=== PATIENT | male | born 1965 | race African-American/Black ===

== ENCOUNTER 2022-04-22 15:43 | Emergency (ER) | payer MEDICAID, OTHER ==
[~2022-04-22] VITALS: Ht 170.2 cm; Wt 60.0 kg
[2022-04-22 16:02] VITALS: BP 176/131
[2022-04-22] MEDS ORDERED: MIRT-89 PO (16:04)
[2022-04-22] MEDS ORDERED: LOSA100T32 PO (16:04)
[2022-04-22] MEDS ORDERED: ATEN50TA PO (16:04)
[2022-04-22] MEDS ORDERED: OLAN20TA34 PO (16:04)
[2022-04-22] MEDS ORDERED: MED4 MT (19:18)
[2022-04-22] MEDS ORDERED: B25 MT (19:18)
[2022-04-22] MEDS ORDERED: DIPHENHYDRAMINE 50MG CAPSULE PO ONE (19:30)
== END 2022-04-22 20:05 | disposition home or self-care (01) ==
LOC: ER 15:43
DX: L50.9 Urticaria, unspecified (principal); F22 Delusional disorders; I10 Essential (primary) hypertension; F43.10 Post-traumatic stress disorder, unspecified
CPT/HCPCS: 99283

== ENCOUNTER 2022-05-20 13:23 | Emergency (ER) | payer MEDICAID, OTHER ==
[~2022-05-20] VITALS: Ht 165.1 cm; Wt 63.0 kg
[~2022-05-20 13:23] MED LIST: ATEN50TA PO; B25 MT; LOSA100T32 PO; MED4 MT; MIRT-89 PO; OLAN20TA34 PO
[2022-05-20 13:25] VITALS: BP 166/112
[2022-05-20] MEDS ORDERED: IBUPROFEN 400MG TABLET PO ONE (16:45)
[2022-05-20 17:39] LABS: BASOPHILS % 0.6 % (0.0-2.0); EOSINOPHILS % 4.9 % (0.0-5.0); HEMATOCRIT. 39.7 % (42.0-52.0); HEMOGLOBIN. 12.9 g/dL (14.0-18.0); LYMPHOCYTES % 41.6 % (20.0-50.0); MEAN CORPUSCULAR HEMOGLOBIN 28.6 pg (28.0-32.0); MEAN PLATELET VOLUME 8.9 fl (7.4-10.4); MONOCYTES % 8.6 % (2.0-8.0); NEUTROPHILS % 44.3 % (40.0-76.0); PLATELET 208 x1000/uL (130-400); RED BLOOD CELL COUNT 4.51 mill/uL (4.7-6.1); RED CELL DISTRIBUTION WIDTH 15.7 % (11.6-14.6)
[2022-05-20 17:55] LABS: CHLORIDE 107 mEq/L (98-107)
[2022-05-20] MEDS ORDERED: CLOT30CR38 TP (18:55)
[2022-05-20] MEDS ORDERED: IBUP-2028 MT (18:55)
== END 2022-05-20 19:30 | disposition left against medical advice (07) ==
LOC: ER 13:39
DX: B35.3 Tinea pedis (principal); I10 Essential (primary) hypertension; Z79.01 Long term (current) use of anticoagulants
CPT/HCPCS: 36415; 73630; 80053; 85025